=== PATIENT | male | born 1985 | race Caucasian/White ===

== ENCOUNTER 2017-04-12 00:30 | Emergency (ER) | payer MEDICAID | END 2017-04-12 01:21 | disposition home or self-care (01) | LOC: D.ER 00:30 | DX: R11.10 Vomiting, unspecified (principal); I10 Essential (primary) hypertension; F17.200 Nicotine dependence, unspecified, uncomplicated ==

== ENCOUNTER 2018-08-28 20:18 | Emergency (ER) | payer SELFPAY ==
[~2018-08-28] VITALS: Ht 180.3 cm; Wt 102.3 kg
[2018-08-28 20:28] VITALS: Ht 180.3 cm; Wt 102.3 kg
[2018-08-28] MEDS ORDERED: ULTRAM50 MG PO (21:34)
[2018-08-28 22:11] VITALS: BP 148/97
== END 2018-08-28 22:12 | disposition home or self-care (01) ==
LOC: D.ER 20:18
DX: S93.401A Sprain of unspecified ligament of right ankle, initial encounter (principal); W18.30XA Fall on same level, unspecified, initial encounter; Y93.89 Activity, other specified; Y92.410 Unspecified street and highway as the place of occurrence of the external cause; S93.601A Unspecified sprain of right foot, initial encounter; F17.200 Nicotine dependence, unspecified, uncomplicated

== ENCOUNTER 2018-09-10 23:32 | Emergency (ER) | payer SELFPAY ==
[~2018-09-10] VITALS: Ht 180.3 cm; Wt 95.5 kg
[~2018-09-10 23:32] MED LIST: ULTRAM50 MG PO
[2018-09-10 23:37] VITALS: Ht 180.3 cm; Wt 95.5 kg
[2018-09-11] MEDS ORDERED: PENICILLIN V P500 MG PO (00:04)
[2018-09-11] MEDS ORDERED: IBUPROFEN800 MG PO (00:04)
[2018-09-11] MEDS ORDERED: SKELAXIN800 MG PO (00:04)
[2018-09-11] MEDS ORDERED: ACETAMINOPHEN500 M1 PO (00:04)
[2018-09-11 00:28] VITALS: BP 144/91
== END 2018-09-11 00:30 | disposition home or self-care (01) ==
LOC: D.ER 23:32
DX: K02.9 Dental caries, unspecified (principal); K08.89 Other specified disorders of teeth and supporting structures; S02.5XXA Fracture of tooth (traumatic), initial encounter for closed fracture; X58.XXXA Exposure to other specified factors, initial encounter; Y93.89 Activity, other specified; Y92.89 Other specified places as the place of occurrence of the external cause; F17.200 Nicotine dependence, unspecified, uncomplicated

== ENCOUNTER 2019-06-05 10:55 | Emergency (ER) | payer MEDICAID ==
[~2019-06-05] VITALS: Ht 180.3 cm; Wt 90.9 kg
[~2019-06-05 10:55] MED LIST changes: +ACETAMINOPHEN500 M1 PO; +IBUPROFEN800 MG PO; +PENICILLIN V P500 MG PO; +SKELAXIN800 MG PO
[2019-06-05 10:56] VITALS: Ht 180.3 cm; Wt 90.9 kg
[2019-06-05 11:30] LABS: BASOPHILS 0.3 % (0-2); EOSINOPHILS 1.3 % (0-7); HEMATOCRIT 43.2 % (42.0-54.0); HEMOGLOBIN 15.5 g/dL (13.5-17.5); IMMATURE GRANULOCYTES 0.3 % (0-5); LYMPHOCYTES 23.9 % (15-50); MCH 29.8 pg (26.0-34.0); MCHC 35.9 g/dL (31.0-37.0); MCV 82.9 fL (80.0-100.0); MEAN PLATELET VOLUME 9.5 fL (7.4-10.4); MONOCYTES 11.1 % (2-11); NEUTROPHILS 63.1 % (40-80); PLATELET COUNT 248 10x3/uL (130-400); RBC 5.21 10x6/uL (4.20-6.10); RDW 13.2 % (11.5-14.5); WBC 10.7 10x3/uL (4.8-10.8)
[2019-06-05 11:48] LABS: APPEARANCE SL CLDY (CLEAR); BILIRUBIN NEGATIVE (NEGATIVE); COLOR YELLOW (YELLOW); GLUCOSE NEGATIVE (NEGATIVE); KETONE NEGATIVE (NEGATIVE); NITRITE NEGATIVE (NEGATIVE); PROTEIN 2+ mg/dL (NEGATIVE); SPECIFIC GRAVITY 1.025 (1.005-1.020); UROBILINOGEN NORMAL (NORMAL)
[2019-06-05 11:49] LABS: BACTERIA MODERATE /hpf (NONE SEEN); EPITHELIAL CELLS RARE /hpf (0-5); MUCUS <1+ /lpf (NONE SEEN); RED CELLS - URINE >50 /hpf (0-5); WHITE CELLS - URINE 0-5 /hpf (0-5)
[2019-06-05 12:08] LABS: ALBUMIN 4.2 g/dL (3.4-5.0); ALKALINE PHOSPHATASE 120 U/L (46-116); ALT (SGPT) 31 U/L (10-68); BILIRUBIN - TOTAL 2.48 mg/dL (0.2-1.3); CALC OSMOLALITY 277 mosm/kg (275-300); CALCIUM 9.2 mg/dL (8.5-10.1); CARBON DIOXIDE 25.8 mmol/L (21.0-32.0); CHLORIDE - SERUM 99 mmol/L (98-107); GLUCOSE 99 mg/dL (74-106); POTASSIUM - SERUM 3.7 mmol/L (3.5-5.1); PROTEIN - SERUM 8.2 g/dL (6.4-8.2); SODIUM 138 mmol/L (136-145); UREA NITROGEN 18 mg/dL (7-18); eGFR NON AFRICAN AMERICAN > 90 mL/min (90-120)
[2019-06-05 12:12] LABS: AMYLASE - SERUM 39 U/L (25-115); LIPASE 57 U/L (73-393); TROPONIN-I < 0.017 ng/mL (0.000-0.060)
[2019-06-05 13:00] LABS: CREATINE KINASE 438 UL (21-232)
[2019-06-05 13:26] LABS: CKMB 2.7 U/L (0.0-3.6)
[2019-06-05] MEDS ORDERED: VOLTAREN75 MG PO (14:03)
[2019-06-05] MEDS ORDERED: PHENERGAN25 M1 PO (14:03)
[2019-06-05 15:01] VITALS: BP 142/88
[2019-06-06 06:09] LABS: HEPATITIS C ANTIBODY >11.0 (0.0-0.9)
== END 2019-06-05 15:04 | disposition home or self-care (01) ==
LOC: D.ER 10:55
PROVIDERS: Family Medicine
DX: N20.0 Calculus of kidney (principal); R94.5 Abnormal results of liver function studies